=== PATIENT | female | born 1995 | race African-American/Black ===

== ENCOUNTER 2017-02-21 20:52 | Emergency (ER) | payer MEDICAID ==
[~2017-02-21] VITALS: Ht 157.5 cm; Wt 41.2 kg
[2017-02-22 06:50] VITALS: BP 108/62
== END 2017-02-22 06:52 | disposition home or self-care (01) ==
LOC: ER 20:52
DX: B37.3 Candidiasis of vulva and vagina (principal); Z87.891 Personal history of nicotine dependence
CPT/HCPCS: 81025; 99283

== ENCOUNTER 2017-05-24 14:55 | Emergency (ER) | payer MEDICAID ==
[~2017-05-24] VITALS: Ht 154.9 cm; Wt 42.0 kg
[2017-05-24 19:50] VITALS: BP 110/59
[2017-05-24] MEDS ORDERED: AZITHROMYCIN 500 MG TABLET PO ONE (20:15)
[2017-05-24] MEDS ORDERED: CEFTRIAXONE SODIUM 250 MG/VIAL IM ONE (20:15)
[2017-05-24 20:29] LABS: CLARITY URINE CLEAR (CLEAR); COLOR URINE YELLOW (YELLOW); KETONES URINE NEGATIVE (NEGATIVE); LEUKOCYTE ESTERASE URINE NEGATIVE (NEGATIVE); NITRITE URINE NEGATIVE (NEGATIVE); OCCULT BLOOD URINE NEGATIVE (NEGATIVE); PH URINE 7.5 (4.5-8.0); PROTEIN URINE NEGATIVE (NEGATIVE); SPECIFIC GRAVITY URINE 1.017 (1.005-1.030)
== END 2017-05-24 21:04 | disposition home or self-care (01) ==
LOC: ER 17:02
DX: Z20.2 Contact with and (suspected) exposure to infections with a predominantly sexual mode of transmission (principal)
CPT/HCPCS: 81003; 81025; 96372; 99283; J0696